=== PATIENT | female | born 1960 | race Caucasian/White ===

== ENCOUNTER 2018-05-12 20:05 | Emergency (ER) | payer SELFPAY ==
--- NOTE | 2018-05-12 20:27 | EDM.PDOC ---
ED HPI GENERAL MEDICAL PROBLEM - General Chief Complaint: Upper Extremity Injury/Pain Stated Complaint: POSSIBLE BROKEN RT ARM Time Seen by Provider: 05/12/18 20:26 Source of Information: Reports: Patient, RN Notes Reviewed History Limitations: Reports: No Limitations - History of Present Illness INITIAL COMMENTS - FREE TEXT/NARRATIVE: Ani presents today for complaints of right wrist pain. She states she fell backward on right outstretched hand while at , dancing [employer] at [employer]. She denies any other injuries. She denies LOC. She states she has had 4 alcoholic beverages [employer]. - Related Data Allergies Allergy/AdvReac Type Severity Reaction Status Date / Time Sulfa (Sulfonamide Allergy Rash Verified 05/12/18 20:18 Antibiotics) Home Meds: Home Meds Lisinopril 10/11/15 [History] Zolpidem [Ambien] 10/11/15 [History] Escitalopram [Lexapro] 05/12/18 [History] Oxybutynin Chloride 05/12/18 [History] buPROPion HCl [Wellbutrin SR] 05/12/18 [History] lamoTRIgine [Lamictal] 05/12/18 [History] Past Medical History Psychiatric History: Reports: Depression Oncologic (Cancer) History: Reports: Ovarian - Past Surgical History HEENT Surgical History: Reports: Myringotomy w Tube(s), Tonsillectomy GI Surgical History: Reports: Appendectomy, Bariatric Procedure, Cholecystectomy Female Surgical History: Reports: Hysterectomy Social & Family History - Tobacco Use Smoking Status *Q: Never Smoker Review of Systems - Review of Systems Review Of Systems: See Below Constitutional: Reports: No Symptoms Eyes: Reports: No Symptoms Ears: Reports: No Symptoms Nose: Reports: No Symptoms Mouth/Throat: Reports: No Symptoms Respiratory: Reports: No Symptoms Cardiovascular: Reports: No Symptoms GI/Abdominal: Reports: No Symptoms Genitourinary: Reports: Other (Bladder incontinence at times. ) Musculoskeletal: Reports: Other (right wrist pain. ) Skin: Denies: Bruising, Rash, Erythema, Wound Neurological: Reports: No Symptoms Psychiatric: Reports: No Symptoms ED EXAM, GENERAL - Physical Exam Exam: See Below Free Text/Narrative:: Ani is an alert 58 year old female presenting with complaints of right wrist pain after falling backward on outstretched hand while dancing [employer]. She denies any other injuries. Exam Limited By: No Limitations General Appearance: Alert, WD/WN, Mild Distress Eye Exam: Bilateral Eye: EOMI, Normal Inspection, PERRL Ears: Normal External Exam, Normal Canal, Hearing Grossly Normal, Normal TMs Ear Exam: Bilateral Ear: Auricle Normal, Canal Normal, TM normal Nose: Normal Inspection, Normal Mucosa, No Blood Throat/Mouth: Normal Inspection, Normal Lips, Normal Teeth, Normal Gums, Normal Oropharynx, Normal Voice, No Airway Compromise Head: Atraumatic, Normocephalic Neck: Normal Inspection, Supple, Non-Tender, Full Range of Motion. No: Lymphadenopathy (R), Lymphadenopathy (L) Respiratory/Chest: No Respiratory Distress, Lungs Clear, Normal Breath Sounds, No Accessory Muscle Use, Chest Non-Tender Cardiovascular: Normal Peripheral Pulses, Regular Rate, Rhythm, No Edema, No Murmur, No Rub Peripheral Pulses: 2+: Radial (L), Radial (R) Back Exam: Normal Inspection, Full Range of Motion. No: CVA Tenderness (R), CVA Tenderness (L) Extremities: No Pedal Edema, Normal Capillary Refill, Other (noted deformity of right wrist, radial pulses equal bilaterally. ) Neurological: Alert, Oriented, CN II-XII Intact, Normal Cognition, Normal Gait, No Motor/Sensory Deficits, Other (ETOH on board) Psychiatric: Normal Affect, Normal Mood Skin Exam: Warm, Dry, Intact, Normal Color, No Rash Lymphatic: No Adenopathy ED TRAUMA EXTREMITY PROCEDURES - Splinting Right Upper Extremity Splint Site: Right wrist Pre-Procedure NV Status: Normal Post-Procedure NV Status: Normal Splint Material: Fiberglass, Sling Splint Design: Sugar Tong, Sling, Other (finger tip traction applied for 45 minutes prior to splinting. ) Applied & Form Fitted By: Provider Provider Post-Splint Application NV Check: NV Status Normal, Good Position Complications: No EKG INTERPRETATION EKG Date: 05/12/18 Time: 21:25 Rhythm: NSR [place]: Normal P-Wave: Present QRS: Normal ST-T: Normal QT: Normal Course - Vital Signs Last Recorded V/S: Last Vital Signs Temp 35.5 C 05/12/18 20:24 Pulse 62 05/12/18 22:19 Resp 16 05/12/18 22:19 BP 127/67 10/05/18 22:19 Pulse Ox 98 05/12/18 22:19 - Orders/Labs/Meds Orders: Active Orders 24 hr Category Date Time Status EKG Documentation Completion [RC] ASDIRECTED Care 05/12/18 21:15 Active Wrist Comp Min 3V Rt [CR] Stat Exams 05/12/18 20:32 Taken EKG 12 Lead [EK] Routine Ther 05/12/18 21:14 Ordered Labs: Laboratory Tests 05/12/18 05/12/18 05/12/18 Range/Units 21:19 21:19 21:19 WBC 7.7 (4.5-11.0) K/uL RBC 4.04 (3.30-5.50) M/uL Hgb 12.5 (12.0-15.0) g/dL Hct 38.6 (36.0-48.0) % MCV 96 (80-98) fL MCH 31 (27-31) pg MCHC 32 (32-36) % Plt Count 249 (150-400) K/uL Neut % (Auto) 76 H (36-66) % Lymph % (Auto) 12 L (24-44) % [place] % (Auto) 11 H (2-6) % Eos % (Auto) 0 L (2-4) % Baso % (Auto) 0 (0-1) % PT 9.9 (9.5-12.0) sec INR 0.89 (0.80-1.20) APTT > 200.0 H* (27.0-36.0) sec Sodium 138 L (140-148) mmol/L Potassium 3.8 (3.6-5.2) mmol/L Chloride 101 (100-108) mmol/L Carbon Dioxide 24 (21-32) mmol/L Anion Gap 16.8 H (5.0-14.0) mmol/L BUN 21 H (7-18) mg/dL Creatinine 1.5 H (0.6-1.0) mg/dL Est Cr Clr Drug Dosing 35.73 mL/min Estimated GFR (MDRD) 36 L (>60) Glucose 100 (74-106) mg/dL Calcium 9.0 (8.5-10.1) mg/dL Total Bilirubin 0.4 (0.2-1.0) mg/dL AST 34 (15-37) U/L ALT 53 (12-78) U/L Alkaline Phosphatase 213 H (46-116) U/L Total Protein 7.8 (6.4-8.2) g/dL Albumin 4.1 (3.4-5.0) g/dL Globulin 3.7 H (2.3-3.5) g/dL Albumin/Globulin Ratio 1.1 L (1.2-2.2) Ethyl Alcohol mg/dL 05/12/18 Range/Units 21:56 WBC (4.5-11.0) K/uL RBC (3.30-5.50) M/uL Hgb (12.0-15.0) g/dL Hct (36.0-48.0) % MCV (80-98) fL MCH (27-31) pg MCHC (32-36) % Plt Count (150-400) K/uL Neut % (Auto) (36-66) % Lymph % (Auto) (24-44) % [place] % (Auto) (2-6) % Eos % (Auto) (2-4) % Baso % (Auto) (0-1) % PT (9.5-12.0) sec INR (0.80-1.20) APTT (27.0-36.0) sec Sodium (140-148) mmol/L Potassium (3.6-5.2) mmol/L Chloride (100-108) mmol/L Carbon Dioxide (21-32) mmol/L Anion Gap (5.0-14.0) mmol/L BUN (7-18) mg/dL Creatinine (0.6-1.0) mg/dL Est Cr Clr Drug Dosing mL/min Estimated GFR (MDRD) (>60) Glucose (74-106) mg/dL Calcium (8.5-10.1) mg/dL Total Bilirubin (0.2-1.0) mg/dL AST (15-37) U/L ALT (12-78) U/L Alkaline Phosphatase (46-116) U/L Total Protein (6.4-8.2) g/dL Albumin (3.4-5.0) g/dL Globulin (2.3-3.5) g/dL Albumin/Globulin Ratio (1.2-2.2) Ethyl Alcohol 58 mg/dL Meds: Medications Discontinued Medications Generic Name Dose Route Start Last Admin Trade Name Freq PRN Reason Stop Dose Admin Hydromorphone HCl 1 mg 05/12/18 21:17 05/12/18 21:34 Dilaudid IM 05/12/18 21:18 1 mg ONETIME ONE Administration - Radiology Interpretation Free Text/Narrative:: X-ray wet read, Noted impacted distal radius fracture, styloid fracture. - Re-Assessments/Exams Free Text/Narrative Re-Assessment/Exam: 05/12/18 20:54 ORTHO contacted, will review x-rays. 05/12/18 21:15 Case reviewed with Eliud DELGADO, [place]. We will place the patient in fingertip traction to assist with gravity reduction , place a sugar tong splint and discharge patient. She will report to the emergency room in [place] at [facility] tomorrow () for surgical repair of her fracture. She will be NPO after midnight tonight. 05/12/18 22:25 Notified Eliud DELGADO or lab results. Departure - Departure Time of Disposition: 22:45 Disposition: Home, Self-Care 01 Condition: Good Clinical Impression: Distal radius fracture, right, Fracture of ulnar styloid - Discharge Information *PRESCRIPTION DRUG MONITORING PROGRAM REVIEWED*: No *COPY OF PRESCRIPTION DRUG MONITORING REPORT IN PATIENT LINDA: No Instructions: Wrist Fracture Treated With Immobilization, [id number] Referrals: PCP,None [Primary Care Provider] - Forms: ED Department Discharge Additional Instructions: You have been evaluated and treated for distal radius compacted fracture, styloid fracture. You were placed in fingertip traction to assist with gravity reduction, followed by a sugar tong splint and discharge to home. You will need report to the emergency room at [facility] [place] in [place] at noon tomorrow (05/13/18) for surgical repair of fracture. Nothing to eat after midnight tonight. Sips of water with pain medication/routine medications only. Keep splint on and dry. Ice to the wrist as tolerated. Keep arm elevated above your heart to help decrease pain. Take hydrocodone as directed for pain. Abnormal renal function, stop use of alcohol. Return for worsening, issues or concerns. - My Orders Last 24 Hours: My Active Orders 05/12/18 20:32 Wrist Comp Min 3V Rt [CR] Stat 05/12/18 21:14 EKG 12 Lead [EK] Routine 05/12/18 21:15 EKG Documentation Completion [RC] ASDIRECTED - Assessment/Plan Last 24 Hours: My Active Orders 05/12/18 20:32 Wrist Comp Min 3V Rt [CR] Stat 05/12/18 21:14 EKG 12 Lead [EK] Routine 05/12/18 21:15 EKG Documentation Completion [RC] ASDIRECTED Assessment:: Distal radius fracture right Fracture of ulnar styloid Plan: Patient evaluated and treated for distal radius compacted fracture, styloid fracture. She was placed in fingertip traction to assist with gravity reduction, followed by a sugar tong splint and discharge to home. She will need report to the emergency room at [facility] [place] in [place] at noon tomorrow (05/13/18) for surgical repair of fracture. Nothing to eat after midnight tonight. Sips of water with pain medication/routine medications only. Keep splint on and dry. Ice to the wrist as tolerated. Keep arm elevated above heart to help decrease pain. Take hydrocodone as directed for pain. Abnormal renal function, stop use of alcohol. Return for worsening, issues or concerns.
[2018-05-12] MEDS ORDERED: HYDROmorphone 1 MG/ML Syringe IM ONE (21:17)
[2018-05-12 22:20] VITALS: BP 127/67
--- NOTE | 2018-05-15 08:40 | CR ---
Wrist Comp Min 3V Rt CLINICAL HISTORY: Fracture FINDINGS: There is a candidate impacted fracture of the distal radius. Chronology is uncertain. There is articular surface involvement. There is a fracture of the ulnar styloid. Impression: Impacted comminuted fracture of the distal radius and fracture through the ulnar styloid. Chronology is uncertain.
== END 2018-05-12 23:15 | disposition home or self-care (01) ==
LOC: JP.ED 20:05
DX: S52.501A Unspecified fracture of the lower end of right radius, initial encounter for closed fracture (principal); S52.611A Displaced fracture of right ulna styloid process, initial encounter for closed fracture; F32.9 Major depressive disorder, single episode, unspecified; Z88.2 Allergy status to sulfonamides; Z79.899 Other long term (current) drug therapy; W19.XXXA Unspecified fall, initial encounter
CPT/HCPCS: 29125; 36415; 73110; 80053; 85025; 85610; 85730; 93005; 96372; 99284; G0480; J1170; 29105; 99283-25